=== PATIENT | male | born 1955 | race Asian ===

== ENCOUNTER 2020-08-22 00:01 | Emergency (ER) | payer SELFPAY ==
[~2020-08-22] VITALS: Ht 177.8 cm; Wt 104.3 kg
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
[2020-08-22 00:12] VITALS: BP 143/82
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
--- NOTE | 2020-08-22 01:30 | NUR ---
ED Nurse Note: Pt returned from CT, moved to bed 8. Pt hooked to accounts adjustable clerk. Bed in lowest position, rails up. No new needs identified.
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
[2020-08-22] MEDS ORDERED: IBUPROFEN600 M1 ORAL (01:45)
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
--- NOTE | 2020-08-22 01:58 | NUR ---
ED Nurse Note: pt resting comfortbaly on stretcher after scan. pt c/o minimal pain when he touches his chest. given motrin. offered pt ice. pt states hell get some at home. pt vs wnl. awaiting dc.
--- NOTE | 2020-08-22 02:00 | NUR ---
ER DISCHARGE NOTE: Patient is cleared to be discharged per ER MD, pt is aox4, on room air, with stable vital signs. pt was given dc and prescription instructions, pt was able to verbalize understanding, pt id band removed without complications. pt is able to ambulate with steady gait. pt took all belongings.
[2020-08-22 02:01] VITALS: BP 127/71
== END 2020-08-22 02:02 | disposition home or self-care (01) ==
LOC: EDBD 00:01 → EMR 00:42
DX: S09.90XA Unspecified injury of head, initial encounter (principal); S00.83XA Contusion of other part of head, initial encounter; S20.219A Contusion of unspecified front wall of thorax, initial encounter; I10 Essential (primary) hypertension; Y04.2XXA Assault by strike against or bumped into by another person, initial encounter; Y93.9 Activity, unspecified; Y92.9 Unspecified place or not applicable
CPT/HCPCS: 70450; 70486; 71046; 99284